=== PATIENT | male | born 1945 | race Caucasian/White ===

== ENCOUNTER 2023-04-18 16:36 | Inpatient (IN) | payer MEDICARE, OTHER ==
[~2023-04-18] VITALS: Ht 170.2 cm; Wt 68.0 kg
[2023-04-18 17:44] LABS: BASOPHILS # (AUTO) 0.1 K/uL (0.0-0.2); BASOPHILS % (AUTO) 0.6 % (0.0-2.0); EOSINOPHILS # (AUTO) 0.2 K/uL (0.0-0.7); EOSINOPHILS % (AUTO) 1.9 % (0.0-6.0); HEMATOCRIT 34 % (39-51); HEMOGLOBIN 11.5 g/dL (13.5-17.5); LYMPHOCYTES # (AUTO) 3.1 K/uL (0.8-4.8); LYMPHOCYTES % (AUTO) 34.6 % (20.0-44.0); MEAN CORPUSCULAR HEMOGLOBIN 30 PG (26.0-33.0); MEAN CORPUSCULAR HGB CONC 33 g/dl (31.0-36.0); MEAN CORPUSCULAR VOLUME 88 fL (80-96); MONOCYTES # (AUTO) 1.3 K/uL (0.1-1.30); NEUTROPHILS # (AUTO) 4.4 K/uL (1.8-8.9); NEUTROPHILS % (AUTO) 48.9 % (43.0-81.0); PLATELET COUNT (AUTO) 372 K/uL (150-450); RED BLOOD CELL COUNT(AUTO) 3.89 MIL/uL (4.5-6.0); RED CELL DISTRIBUTION WIDTH 16.1 % (11.5-15.0); WHITE BLOOD COUNT (AUTO) 9.1 K/uL (4.3-11.0)
[2023-04-18 17:58] LABS: INR 1.01 (0.91-1.10); PARTIAL THROMBOPLASTIN TIME 28.4 SEC (24.3-34.3); PROTHROMBIN TIME 10.6 SECS (9.2-11.1)
[2023-04-18 19:17] LABS: CALCIUM, SERUM 9.3 mg/dL (8.5-10.1); CARBON DIOXIDE 22 mmol/L (21-32); CHLORIDE 96 mmol/L (98-107); CREATININE 1.7 mg/dL (0.6-1.3); GLUCOSE 112 mg/dL (74-106); POTASSIUM 4.5 mmol/L (3.5-5.1); SODIUM SERUM 131 mmol/L (136-145); UREA NITROGEN, BLOOD 20 mg/dL (7-18)
[2023-04-18 19:28] LABS: ALANINE AMINOTRANSFERASE 22 U/L (12-78); ALBUMIN 2.8 g/dL (3.4-5.0); ALKALINE PHOSPHATASE 112 U/L (46-116); ASPARTATE AMINOTRANSFERASE 22 U/L (15-37); BILIRUBIN,DIRECT 0.3 mg/dL (0.0-0.2); BILIRUBIN,TOTAL 0.9 mg/dL (0.2-1.0); NT-PRO BNP 10500 pg/mL (0-125); TOTAL PROTEIN, SERUM 8.2 g/dL (6.4-8.2)
[2023-04-18] MEDS ORDERED: ZOLPIDEM TARTRATE 5 MG TABLET PO PRN (22:00)
[2023-04-18] MEDS ORDERED: FUROSEMIDE 40 MG/4 ML VIAL IV ONE (22:00)
[2023-04-18] MEDS ORDERED: MAGNESIUM HYDROXIDE 30 ML UDC PO PRN (22:00)
[2023-04-18] MEDS ORDERED: ACETAMINOPHEN 325 MG TABLET PO PRN (22:00)
[2023-04-18] MEDS ORDERED: Z GUARD REMEDY 4 OZ OINT TP PRN (22:00)
[2023-04-18] MEDS ORDERED: ONDANSETRON HCL/PF 4 MG/2 ML VIAL IVP PRN (22:00)
[2023-04-18 22:15] VITALS: BP 120/79; TEMP 97.9; O2SAT 94
[2023-04-18 23:00] VITALS: BP 120/79; TEMP 97.9; O2SAT 94
[2023-04-18] MEDS ORDERED: CEFTRIAXONE 1GM BAG (ER ONLY) 50 ML IV ONE (23:33)
[2023-04-18] MEDS: CEFTRIAXONE 1 G in IV D5W 50 ML IV SCH (23:49)
[2023-04-19] VITALS (7 sets, daily range): BP systolic 93–122; BP diastolic 52–63; TEMP 97.7–98.3; O2SAT 92–95
[2023-04-19] MEDS ORDERED: LEVALBUTEROL HCL NEB 1.25 MG/0.5 ML VIAL.NEB NEB PRN (01:00)
[2023-04-19] MEDS ORDERED: AZITHROMYCIN 500 MG VIAL ONE (01:03)
[2023-04-19] MEDS: AZITHROMYCIN 500 MG in IV D5W 250 ML IV SCH ×2 (01:56→21:51)
[2023-04-19 03:23] LABS: BASOPHILS # (AUTO) 0.2 K/uL (0.0-0.2); BASOPHILS % (AUTO) 2.7 % (0.0-2.0); EOSINOPHILS # (AUTO) 0.1 K/uL (0.0-0.7); EOSINOPHILS % (AUTO) 1.7 % (0.0-6.0); HEMATOCRIT 33 % (39-51); HEMOGLOBIN 11.2 g/dL (13.5-17.5); LYMPHOCYTES # (AUTO) 1.6 K/uL (0.8-4.8); LYMPHOCYTES % (AUTO) 20.6 % (20.0-44.0); MEAN CORPUSCULAR HEMOGLOBIN 29 PG (26.0-33.0); MEAN CORPUSCULAR HGB CONC 34 g/dl (31.0-36.0); MEAN CORPUSCULAR VOLUME 87 fL (80-96); MONOCYTES # (AUTO) 0.7 K/uL (0.1-1.30); MONOCYTES % (AUTO) 9.3 % (2.0-12.0); NEUTROPHILS # (AUTO) 5.2 K/uL (1.8-8.9); NEUTROPHILS % (AUTO) 65.7 % (43.0-81.0); PLATELET COUNT (AUTO) 357 K/uL (150-450); RED CELL DISTRIBUTION WIDTH 15.6 % (11.5-15.0); WHITE BLOOD COUNT (AUTO) 7.9 K/uL (4.3-11.0)
[2023-04-19] MEDS ORDERED: HEPARIN INFUSION/D5W 500 ML IV ONE (03:34)
[2023-04-19] MEDS ORDERED: HEPARIN SODIUM, PORCINE 5000 UNITS/1 ML VIAL IV ONE ×3 (04:00→19:00)
[2023-04-19 04:16] LABS: CALCIUM, SERUM 9.3 mg/dL (8.5-10.1); CARBON DIOXIDE 20 mmol/L (21-32); CHLORIDE 98 mmol/L (98-107); CREATININE 1.7 mg/dL (0.6-1.3); GLUCOSE 158 mg/dL (74-106); PHOSPHORUS 3.9 mg/dL (2.5-4.9); POTASSIUM 4.8 mmol/L (3.5-5.1); SODIUM SERUM 133 mmol/L (136-145); UREA NITROGEN, BLOOD 20 mg/dL (7-18)
[2023-04-19 04:18] LABS: CHOLESTEROL 178 mg/dL (<200); HDL CHOLESTEROL 41 mg/dL (40-60); LDL 107 mg/dL (0-99); TRIGLYCERIDES 152 mg/dL (30-150)
[2023-04-19] MEDS: HEPARIN INFUSION/D5W 500 ML IV PRN ×2 (04:24→22:00)
[2023-04-19 04:28] LABS: EOSINOPHILS % (MANUAL) 1 % (0-4); LYMPHOCYTES % (MANUAL) 32 % (16-48); MONOCYTES % (MANUAL) 7 % (0-11.0); NEUTROPHILS % (MANUAL) 60 (42-76); PLATELET ESTIMATE ADEQUATE
[2023-04-19] MEDS ORDERED: HEPARIN SODIUM, PORCINE 5000 UNITS/1 ML VIAL SQ SCH (09:00)
[2023-04-19] MEDS ORDERED: DUTA0.5C37 PO (09:18)
[2023-04-19] MEDS ORDERED: NITR0.4T48 PO (09:18)
[2023-04-19] MEDS ORDERED: SPIR50TA PO (09:18)
[2023-04-19] MEDS ORDERED: PANT40TA49 PO (09:18)
[2023-04-19] MEDS ORDERED: IVAB5TAB PO (09:18)
[2023-04-19] MEDS ORDERED: LOSA25TA27 PO (09:18)
[2023-04-19] MEDS ORDERED: ATOR40TA PO (09:18)
[2023-04-19] MEDS ORDERED: RANO10005 PO (09:18)
[2023-04-19] MEDS ORDERED: TAMS-12 PO (09:18)
[2023-04-19] MEDS ORDERED: ALBU18HF2 INH (09:18)
[2023-04-19] MEDS ORDERED: SITA1TAB2 PO (09:18)
[2023-04-19] MEDS ORDERED: ASPI-1420 PO (09:18)
[2023-04-19] MEDS ORDERED: FUROSEMIDE 20 MG/2 ML VIAL IV SCH (09:30)
[2023-04-19] MEDS ORDERED: SACU1TAB PO (10:06)
[2023-04-19] MEDS ORDERED: METO25CA PO (10:06)
[2023-04-19] MEDS ORDERED: CLOP75TA15 PO (10:06)
[2023-04-19] MEDS ORDERED: INSU100V7 SQ (10:07)
[2023-04-19 10:16] LABS: ABG OXYGEN SATURATION 93.1 % (92.0-98.5); ABG PCO2 32.6 mmHg (35.0-45.0); ABG PH 7.497 (7.350-7.450); ABG TOTAL HEMOGLOBIN 12.6 G/dL (13.5-18.0); AaDO2 96.2 mmHg; COHb 0.7 % (0.5-1.5); MetHb 0.1 % (0.0-1.5); O2Hb 92.4 % (94.0-97.0); SITE, ABG Left Radial; VENT MODE, BG 2L NC
[2023-04-19] MEDS: ASPIRIN 81 MG TAB.CHEW PO SCH (10:16)
[2023-04-19] MEDS: FUROSEMIDE 40 MG/4 ML VIAL IV SCH ×3 (10:21→17:06)
[2023-04-19 10:51] LABS: INR 1.02 (0.91-1.10); PARTIAL THROMBOPLASTIN TIME 44.1 SEC (24.3-34.3); PROTHROMBIN TIME 10.7 SECS (9.2-11.1)
[2023-04-19] MEDS: CEFTRIAXONE 1 G in IV D5W 50 ML IV SCH (22:48)
[2023-04-20] VITALS (10 sets, daily range): BP systolic 85–108; BP diastolic 46–67; TEMP 97.7–98.5; O2SAT 92–98
[2023-04-20 06:13] LABS: BASOPHILS # (AUTO) 0.1 K/uL (0.0-0.2); BASOPHILS % (AUTO) 1.5 % (0.0-2.0); EOSINOPHILS # (AUTO) 0.4 K/uL (0.0-0.7); EOSINOPHILS % (AUTO) 4.2 % (0.0-6.0); HEMATOCRIT 36 % (39-51); LYMPHOCYTES # (AUTO) 2.6 K/uL (0.8-4.8); LYMPHOCYTES % (AUTO) 28.2 % (20.0-44.0); MEAN CORPUSCULAR HEMOGLOBIN 30 PG (26.0-33.0); MEAN CORPUSCULAR HGB CONC 34 g/dl (31.0-36.0); MEAN CORPUSCULAR VOLUME 88 fL (80-96); MONOCYTES # (AUTO) 0.9 K/uL (0.1-1.30); MONOCYTES % (AUTO) 10.1 % (2.0-12.0); NEUTROPHILS # (AUTO) 5.2 K/uL (1.8-8.9); PLATELET COUNT (AUTO) 372 K/uL (150-450); RED BLOOD CELL COUNT(AUTO) 4.06 MIL/uL (4.5-6.0); WHITE BLOOD COUNT (AUTO) 9.3 K/uL (4.3-11.0)
[2023-04-20 06:32] LABS: ALANINE AMINOTRANSFERASE 18 U/L (12-78); ALBUMIN 2.3 g/dL (3.4-5.0); ALKALINE PHOSPHATASE 110 U/L (46-116); ASPARTATE AMINOTRANSFERASE 22 U/L (15-37); BILIRUBIN,TOTAL 0.7 mg/dL (0.2-1.0); CALCIUM, SERUM 9.1 mg/dL (8.5-10.1); CARBON DIOXIDE 24 mmol/L (21-32); CHLORIDE 96 mmol/L (98-107); CREATININE 1.5 mg/dL (0.6-1.3); GLUCOSE 122 mg/dL (74-106); MAGNESIUM 1.7 mg/dL (1.8-2.4); PHOSPHORUS 4.2 mg/dL (2.5-4.9); POTASSIUM 3.5 mmol/L (3.5-5.1); SODIUM SERUM 132 mmol/L (136-145); TOTAL PROTEIN, SERUM 7.6 g/dL (6.4-8.2); UREA NITROGEN, BLOOD 14 mg/dL (7-18)
[2023-04-20] MEDS: ASPIRIN 81 MG TAB.CHEW PO SCH (08:57)
[2023-04-20] MEDS: FUROSEMIDE 100 MG/10 ML VIAL IV SCH ×3 (09:00→17:00)
[2023-04-20] MEDS ORDERED: LOSARTAN POTASSIUM 25 MG TABLET PO SCH (09:00)
[2023-04-20] MEDS: SPIRONOLACTONE 25 MG TABLET PO SCH (10:00)
[2023-04-20] MEDS: POTASSIUM CHLORIDE 20 MEQ TAB.PRT.SR PO SCH ×4 (10:00→11:00)
[2023-04-20] MEDS: CLOPIDOGREL BISULFATE 75 MG TABLET PO SCH (10:11)
[2023-04-20] MEDS: Magnesium 1GM/D5W 100ML PREMIX 100 ML IV SCH ×2 (10:12→10:46)
[2023-04-20] MEDS: ENOXAPARIN SODIUM 40 MG/0.4 ML DISP.SYRIN SQ SCH (10:20)
[2023-04-20] MEDS: RANOLAZINE 500 MG TAB.ER.12H PO SCH ×2 (10:21→16:18)
[2023-04-20] MEDS: METOPROLOL SUCCINATE 25 MG TAB.SR.24H PO SCH (11:00)
[2023-04-20] MEDS: SACUBITRIL/VALSARTAN 1 EACH TABLET PO SCH ×2 (11:00→17:00)
[2023-04-20] MEDS: ALBUTEROL FS 2.5 MG/3 ML VIAL.NEB NEB SCH ×2 (14:03→19:47)
[2023-04-20] MEDS: AZITHROMYCIN 500 MG in IV D5W 250 ML IV SCH (21:25)
[2023-04-20] MEDS: ATORVASTATIN 40 MG TABLET PO SCH (22:34)
[2023-04-20] MEDS: MAG HYDROX/AL HYDROX/SIMETH 30 ML UDC PO PRN (22:34)
[2023-04-20] MEDS: CEFTRIAXONE 1 G in IV D5W 50 ML IV SCH (23:17)
[2023-04-21] VITALS (35 sets, daily range): BP systolic 74–115; BP diastolic 46–84; TEMP 97.9–98.8; O2SAT 92–99
[2023-04-21] MEDS ORDERED: IV NS 0.9% 500 ML BAG IV ONE (01:00)
[2023-04-21] MEDS: ALBUTEROL FS 2.5 MG/3 ML VIAL.NEB NEB SCH ×4 (01:32→19:21)
[2023-04-21 06:45] LABS: BASOPHILS # (AUTO) 0.1 K/uL (0.0-0.2); BASOPHILS % (AUTO) 0.7 % (0.0-2.0); EOSINOPHILS # (AUTO) 0.3 K/uL (0.0-0.7); EOSINOPHILS % (AUTO) 2.9 % (0.0-6.0); HEMATOCRIT 33 % (39-51); HEMOGLOBIN 11.3 g/dL (13.5-17.5); LYMPHOCYTES # (AUTO) 2.3 K/uL (0.8-4.8); LYMPHOCYTES % (AUTO) 23.2 % (20.0-44.0); MEAN CORPUSCULAR HEMOGLOBIN 30 PG (26.0-33.0); MEAN CORPUSCULAR HGB CONC 34 g/dl (31.0-36.0); MEAN CORPUSCULAR VOLUME 87 fL (80-96); MONOCYTES # (AUTO) 1.1 K/uL (0.1-1.30); NEUTROPHILS # (AUTO) 6.2 K/uL (1.8-8.9); NEUTROPHILS % (AUTO) 62.2 % (43.0-81.0); PLATELET COUNT (AUTO) 359 K/uL (150-450); RED BLOOD CELL COUNT(AUTO) 3.83 MIL/uL (4.5-6.0); WHITE BLOOD COUNT (AUTO) 9.9 K/uL (4.3-11.0)
[2023-04-21 06:59] LABS: ALANINE AMINOTRANSFERASE 22 U/L (12-78); ALBUMIN 2.3 g/dL (3.4-5.0); ALKALINE PHOSPHATASE 135 U/L (46-116); ASPARTATE AMINOTRANSFERASE 25 U/L (15-37); BILIRUBIN,TOTAL 0.6 mg/dL (0.2-1.0); CHLORIDE 98 mmol/L (98-107); CREATININE 1.6 mg/dL (0.6-1.3); GLUCOSE 116 mg/dL (74-106); PHOSPHORUS 3.6 mg/dL (2.5-4.9); POTASSIUM 4.2 mmol/L (3.5-5.1); SODIUM SERUM 132 mmol/L (136-145); TOTAL PROTEIN, SERUM 7.4 g/dL (6.4-8.2); UREA NITROGEN, BLOOD 13 mg/dL (7-18)
[2023-04-21 07:18] LABS: CARBON DIOXIDE 24 mmol/L (21-32); MAGNESIUM 1.9 mg/dL (1.8-2.4)
[2023-04-21] MEDS ORDERED: DoBUTamine 500 MG/250 ML PIGGYBACK IV ONE (08:30)
[2023-04-21] MEDS: ASPIRIN EC 81 MG TABLET.DR PO SCH (08:32)
[2023-04-21] MEDS: CLOPIDOGREL BISULFATE 75 MG TABLET PO SCH (08:32)
[2023-04-21] MEDS: PANTOPRAZOLE 40 MG TABLET.DR PO SCH (08:32)
[2023-04-21] MEDS: ENOXAPARIN SODIUM 40 MG/0.4 ML DISP.SYRIN SQ SCH (08:33)
[2023-04-21] MEDS: SPIRONOLACTONE 25 MG TABLET PO SCH (08:40)
[2023-04-21] MEDS: SACUBITRIL/VALSARTAN 1 EACH TABLET PO SCH ×2 (08:41→16:13)
[2023-04-21] MEDS: METOPROLOL SUCCINATE 25 MG TAB.SR.24H PO SCH (08:41)
[2023-04-21] MEDS: RANOLAZINE 500 MG TAB.ER.12H PO SCH ×2 (08:42→16:37)
[2023-04-21] MEDS: DOBUTamine 500 MG in IV D5W 210 ML IV PRN (09:48)
[2023-04-21] MEDS: PHENYLEPHRINE 50 MG in IV NS 0.9% 245 ML IV PRN (15:35)
[2023-04-21] MEDS: ENSURE ENLIVE 237 ML LIQUID (VANILLA) PO SCH ×2 (15:36→16:37)
[2023-04-21] MEDS: AZITHROMYCIN 500 MG in IV D5W 250 ML IV SCH (20:00)
[2023-04-21] MEDS: CEFTRIAXONE 1 G in IV D5W 50 ML IV SCH (21:00)
[2023-04-21] MEDS: ATORVASTATIN 40 MG TABLET PO SCH (21:04)
[2023-04-21] MEDS: MAG HYDROX/AL HYDROX/SIMETH 30 ML UDC PO PRN (21:16)
[2023-04-22] VITALS (42 sets, daily range): BP systolic 42–110; BP diastolic 26–82; TEMP 97.6–98.3; O2SAT 86–100
[2023-04-22] MEDS: ALBUTEROL FS 2.5 MG/3 ML VIAL.NEB NEB SCH ×4 (00:46→20:14)
[2023-04-22] MEDS: DOBUTamine 500 MG in IV D5W 210 ML IV PRN ×2 (03:02→22:00)
[2023-04-22] MEDS: PHENYLEPHRINE 50 MG in IV NS 0.9% 245 ML IV PRN ×3 (03:04→23:04)
[2023-04-22 04:55] LABS: BASOPHILS % (AUTO) 0.5 % (0.0-2.0); EOSINOPHILS # (AUTO) 0.2 K/uL (0.0-0.7); EOSINOPHILS % (AUTO) 2.6 % (0.0-6.0); HEMATOCRIT 33 % (39-51); HEMOGLOBIN 11.1 g/dL (13.5-17.5); LYMPHOCYTES # (AUTO) 2.5 K/uL (0.8-4.8); LYMPHOCYTES % (AUTO) 27.5 % (20.0-44.0); MEAN CORPUSCULAR HEMOGLOBIN 30 PG (26.0-33.0); MEAN CORPUSCULAR HGB CONC 34 g/dl (31.0-36.0); MEAN CORPUSCULAR VOLUME 88 fL (80-96); MONOCYTES % (AUTO) 11.2 % (2.0-12.0); NEUTROPHILS # (AUTO) 5.3 K/uL (1.8-8.9); NEUTROPHILS % (AUTO) 58.2 % (43.0-81.0); PLATELET COUNT (AUTO) 385 K/uL (150-450); RED BLOOD CELL COUNT(AUTO) 3.76 MIL/uL (4.5-6.0); RED CELL DISTRIBUTION WIDTH 16.1 % (11.5-15.0); WHITE BLOOD COUNT (AUTO) 9.2 K/uL (4.3-11.0)
[2023-04-22 05:17] LABS: ALANINE AMINOTRANSFERASE 15 U/L (12-78); ALBUMIN 2.4 g/dL (3.4-5.0); ALKALINE PHOSPHATASE 140 U/L (46-116); ASPARTATE AMINOTRANSFERASE 20 U/L (15-37); BILIRUBIN,TOTAL 0.9 mg/dL (0.2-1.0); CALCIUM, SERUM 8.9 mg/dL (8.5-10.1); CARBON DIOXIDE 28 mmol/L (21-32); CHLORIDE 99 mmol/L (98-107); CREATININE 1.5 mg/dL (0.6-1.3); GLUCOSE 108 mg/dL (74-106); MAGNESIUM 1.9 mg/dL (1.8-2.4); PHOSPHORUS 3.4 mg/dL (2.5-4.9); POTASSIUM 4.3 mmol/L (3.5-5.1); SODIUM SERUM 133 mmol/L (136-145); TOTAL PROTEIN, SERUM 7.4 g/dL (6.4-8.2); UREA NITROGEN, BLOOD 12 mg/dL (7-18)
[2023-04-22] MEDS: ENSURE ENLIVE 237 ML LIQUID (VANILLA) PO SCH ×3 (08:00→17:00)
[2023-04-22] MEDS: METOPROLOL SUCCINATE 25 MG TAB.SR.24H PO SCH (08:19)
[2023-04-22] MEDS: SPIRONOLACTONE 25 MG TABLET PO SCH (08:56)
[2023-04-22] MEDS: SACUBITRIL/VALSARTAN 1 EACH TABLET PO SCH ×2 (09:00→17:00)
[2023-04-22] MEDS: RANOLAZINE 500 MG TAB.ER.12H PO SCH ×2 (09:04→18:52)
[2023-04-22] MEDS: ASPIRIN EC 81 MG TABLET.DR PO SCH (09:04)
[2023-04-22] MEDS: CLOPIDOGREL BISULFATE 75 MG TABLET PO SCH (09:04)
[2023-04-22] MEDS: PANTOPRAZOLE 40 MG TABLET.DR PO SCH (09:04)
[2023-04-22] MEDS: ENOXAPARIN SODIUM 40 MG/0.4 ML DISP.SYRIN SQ SCH (09:06)
[2023-04-22 17:44] LABS: CREATININE, URINE 155.2 MG/DL (30.0-125.0)
[2023-04-22 18:54] LABS: APPEARANCE,URINE CLEAR (CLEAR); BILIRUBIN,URINE NEGATIVE (NEGATIVE); BLOOD, URINE TRACE-INTA Ery/uL (NEGATIVE); COLOR,URINE YELLOW (YELLOW); KETONES,URINE NEGATIVE (NEGATIVE); LEUKOCYTE ESTERASE ,URINE TRACE (NEGATIVE); NITRITE, URINE NEGATIVE (NEGATIVE); PH,URINE 5.5 (5.0-8.0); PROTEIN,URINE 1+ mg/dl (NEGATIVE); UGLUCOSE NEGATIVE (NEGATIVE); UROBILINOGEN,URINE 0.2 EU/dL (0.2)
[2023-04-22 18:57] LABS: ADD URINE CULTURE YES; BACTERIA,URINE 1+ /HPF (None Seen); SQUAMOUS EPITHELIAL CELL,UR Few /HPF (None Seen); WBC,URINE TOO NUMEROUS TO COUN /HPF (0-3)
[2023-04-22 18:59] LABS: EOSINOPHIL,URINE Rare
[2023-04-22] MEDS: AZITHROMYCIN 500 MG in IV D5W 250 ML IV SCH (21:00)
[2023-04-22] MEDS: ATORVASTATIN 40 MG TABLET PO SCH (21:48)
[2023-04-22] MEDS: MAG HYDROX/AL HYDROX/SIMETH 30 ML UDC PO PRN (21:49)
[2023-04-22] MEDS: CEFTRIAXONE 1 G in IV D5W 50 ML IV SCH (22:00)
[2023-04-22] MEDS ORDERED: NOREPINEPHRINE 4 MG/4 ML AMPUL IV ONE (22:23)
[2023-04-22] MEDS ORDERED: NOREPINEPHRINE 32 MG in IV NS 0.9% 218 ML IV PRN (22:30)
[2023-04-22 23:01] LABS: BASOPHILS % (AUTO) 0.3 % (0.0-2.0); EOSINOPHILS # (AUTO) 0.3 K/uL (0.0-0.7); HEMATOCRIT 34 % (39-51); LYMPHOCYTES # (AUTO) 6.2 K/uL (0.8-4.8); LYMPHOCYTES % (AUTO) 46.6 % (20.0-44.0); MEAN CORPUSCULAR HEMOGLOBIN 29 PG (26.0-33.0); MEAN CORPUSCULAR HGB CONC 32 g/dl (31.0-36.0); MEAN CORPUSCULAR VOLUME 90 fL (80-96); MONOCYTES # (AUTO) 1.2 K/uL (0.1-1.30); MONOCYTES % (AUTO) 8.8 % (2.0-12.0); NEUTROPHILS # (AUTO) 5.6 K/uL (1.8-8.9); NEUTROPHILS % (AUTO) 42.3 % (43.0-81.0); PLATELET COUNT (AUTO) 349 K/uL (150-450); RED BLOOD CELL COUNT(AUTO) 3.81 MIL/uL (4.5-6.0); RED CELL DISTRIBUTION WIDTH 16.5 % (11.5-15.0); WHITE BLOOD COUNT (AUTO) 13.4 K/uL (4.3-11.0)
[2023-04-22 23:11] LABS: ABG BASE EXCESS -8.2 mmol/L; ABG OXYGEN SATURATION 99.4 % (92.0-98.5); ABG PCO2 38.5 mmHg (35.0-45.0); ABG PH 7.284 (7.350-7.450); ABG PO2 256.8 mmHg (75.0-100.0); ABG TOTAL HEMOGLOBIN 12.6 G/dL (13.5-18.0); AaDO2 273.2 mmHg; COHb 0.1 % (0.5-1.5); MetHb 0.1 % (0.0-1.5); O2Hb 99.2 % (94.0-97.0); SITE, ABG Left Radial
[2023-04-22 23:15] LABS: INR 1.06 (0.91-1.10); PARTIAL THROMBOPLASTIN TIME 29.6 SEC (24.3-34.3); PROTHROMBIN TIME 11.1 SECS (9.2-11.1)
[2023-04-22 23:24] LABS: CALCIUM, SERUM 8.4 mg/dL (8.5-10.1); CARBON DIOXIDE 23 mmol/L (21-32); CHLORIDE 98 mmol/L (98-107); CREATININE 1.9 mg/dL (0.6-1.3); GLUCOSE 232 mg/dL (74-106); POTASSIUM 4.6 mmol/L (3.5-5.1); SODIUM SERUM 132 mmol/L (136-145); UREA NITROGEN, BLOOD 15 mg/dL (7-18)
[2023-04-22 23:30] LABS: ALANINE AMINOTRANSFERASE 16 U/L (12-78); ALBUMIN 2.2 g/dL (3.4-5.0); ALKALINE PHOSPHATASE 142 U/L (46-116); ASPARTATE AMINOTRANSFERASE 22 U/L (15-37); BILIRUBIN,TOTAL 0.7 mg/dL (0.2-1.0); TOTAL PROTEIN, SERUM 7.3 g/dL (6.4-8.2)
[2023-04-22] MEDS ORDERED: ASPIRIN 81 MG TAB.CHEW PO SCH (23:30)
[2023-04-22 23:53] LABS: BILIRUBIN,DIRECT 0.5 mg/dL (0.0-0.2)
[2023-04-23] VITALS (47 sets, daily range): BP systolic 79–121; BP diastolic 44–91; TEMP 97.5–98.2; O2SAT 92–100
[2023-04-23] MEDS: ALBUTEROL FS 2.5 MG/3 ML VIAL.NEB NEB SCH ×4 (01:30→19:48)
[2023-04-23] MEDS: PHENYLEPHRINE 50 MG in IV NS 0.9% 245 ML IV PRN ×2 (03:00→06:30)
[2023-04-23] MEDS ORDERED: IV NS 0.9% 500 ML IV ONE (03:30)
[2023-04-23 04:48] LABS: BASOPHILS % (AUTO) 0.2 % (0.0-2.0); EOSINOPHILS % (AUTO) 0.2 % (0.0-6.0); HEMATOCRIT 34 % (39-51); HEMOGLOBIN 11.2 g/dL (13.5-17.5); LYMPHOCYTES % (AUTO) 16.5 % (20.0-44.0); MEAN CORPUSCULAR HEMOGLOBIN 29 PG (26.0-33.0); MEAN CORPUSCULAR HGB CONC 33 g/dl (31.0-36.0); MEAN CORPUSCULAR VOLUME 89 fL (80-96); MONOCYTES # (AUTO) 0.9 K/uL (0.1-1.30); MONOCYTES % (AUTO) 7.8 % (2.0-12.0); NEUTROPHILS # (AUTO) 9.1 K/uL (1.8-8.9); NEUTROPHILS % (AUTO) 75.3 % (43.0-81.0); PLATELET COUNT (AUTO) 363 K/uL (150-450); RED BLOOD CELL COUNT(AUTO) 3.85 MIL/uL (4.5-6.0); RED CELL DISTRIBUTION WIDTH 16.4 % (11.5-15.0); WHITE BLOOD COUNT (AUTO) 12.1 K/uL (4.3-11.0)
[2023-04-23 05:12] LABS: ALANINE AMINOTRANSFERASE 33 U/L (12-78); ALBUMIN 2.3 g/dL (3.4-5.0); ALKALINE PHOSPHATASE 198 U/L (46-116); ASPARTATE AMINOTRANSFERASE 49 U/L (15-37); BILIRUBIN,TOTAL 0.8 mg/dL (0.2-1.0); CALCIUM, SERUM 8.6 mg/dL (8.5-10.1); CARBON DIOXIDE 25 mmol/L (21-32); CHLORIDE 99 mmol/L (98-107); CREATININE 1.9 mg/dL (0.6-1.3); GLUCOSE 100 mg/dL (74-106); MAGNESIUM 2.1 mg/dL (1.8-2.4); PHOSPHORUS 3.6 mg/dL (2.5-4.9); POTASSIUM 4.5 mmol/L (3.5-5.1); SODIUM SERUM 133 mmol/L (136-145); TOTAL PROTEIN, SERUM 7.1 g/dL (6.4-8.2); UREA NITROGEN, BLOOD 17 mg/dL (7-18)
[2023-04-23 05:18] LABS: IRON, SERUM 35 ug/dl (50-175); TOTAL IRON BINDING CAPACITY 247 ug/dl (250-450)
[2023-04-23 05:27] LABS: CREATINE KINASE, TOTAL 32 U/L (39-308); FERRITIN 162 ng/mL (8-388); THYROID STIMULATING HORMONE 1.357 uIU/mL (0.358-3.74)
[2023-04-23] MEDS: ENSURE ENLIVE 237 ML LIQUID (VANILLA) PO SCH ×3 (07:53→16:53)
[2023-04-23] MEDS: CLOPIDOGREL BISULFATE 75 MG TABLET PO SCH (08:49)
[2023-04-23] MEDS: ASPIRIN EC 81 MG TABLET.DR PO SCH (08:49)
[2023-04-23] MEDS: PANTOPRAZOLE 40 MG TABLET.DR PO SCH (08:49)
[2023-04-23] MEDS: ENOXAPARIN SODIUM 40 MG/0.4 ML DISP.SYRIN SQ SCH (08:50)
[2023-04-23] MEDS: HYDROCORTISONE SOD SUCCINATE 100 MG/2 ML VIAL IV SCH ×3 (08:55→21:35)
[2023-04-23] MEDS ORDERED: PHENYLEPHRINE 100 MG in IV NS 0.9% 240 ML IV PRN (09:30)
[2023-04-23] MEDS: FERROUS SULFATE (325 MG) 325 MG/TAB TABLET PO SCH (16:55)
[2023-04-23] MEDS: PHENYLEPHRINE 100 MG in IV NS 0.9% 240 ML IV PRN ×2 (18:34→19:02)
[2023-04-23] MEDS: ATORVASTATIN 40 MG TABLET PO SCH (21:35)
[2023-04-23] MEDS ORDERED: NOREPINEPHRINE 8 MG in IV NS 0.9% 242 ML IV PRN ×4 (22:00)
[2023-04-24] VITALS (50 sets, daily range): BP systolic 77–136; BP diastolic 53–91; TEMP 97.7–98.3; O2SAT 89–100
[2023-04-24] MEDS: ALBUTEROL FS 2.5 MG/3 ML VIAL.NEB NEB SCH ×4 (01:54→19:54)
[2023-04-24 04:47] LABS: BASOPHILS % (AUTO) 0.1 % (0.0-2.0); HEMATOCRIT 33 % (39-51); LYMPHOCYTES # (AUTO) 1.7 K/uL (0.8-4.8); LYMPHOCYTES % (AUTO) 15.7 % (20.0-44.0); MEAN CORPUSCULAR HEMOGLOBIN 29 PG (26.0-33.0); MEAN CORPUSCULAR HGB CONC 33 g/dl (31.0-36.0); MEAN CORPUSCULAR VOLUME 89 fL (80-96); MONOCYTES # (AUTO) 0.4 K/uL (0.1-1.30); MONOCYTES % (AUTO) 4.2 % (2.0-12.0); NEUTROPHILS # (AUTO) 8.5 K/uL (1.8-8.9); PLATELET COUNT (AUTO) 418 K/uL (150-450); RED BLOOD CELL COUNT(AUTO) 3.76 MIL/uL (4.5-6.0); RED CELL DISTRIBUTION WIDTH 16.1 % (11.5-15.0); WHITE BLOOD COUNT (AUTO) 10.6 K/uL (4.3-11.0)
[2023-04-24 05:02] LABS: ALANINE AMINOTRANSFERASE 26 U/L (12-78); ALBUMIN 2.6 g/dL (3.4-5.0); ALKALINE PHOSPHATASE 173 U/L (46-116); ASPARTATE AMINOTRANSFERASE 24 U/L (15-37); BILIRUBIN,TOTAL 0.5 mg/dL (0.2-1.0); CALCIUM, SERUM 8.9 mg/dL (8.5-10.1); CARBON DIOXIDE 25 mmol/L (21-32); CHLORIDE 100 mmol/L (98-107); CREATININE 1.9 mg/dL (0.6-1.3); GLUCOSE 168 mg/dL (74-106); PHOSPHORUS 3.2 mg/dL (2.5-4.9); POTASSIUM 4.3 mmol/L (3.5-5.1); SODIUM SERUM 134 mmol/L (136-145); TOTAL PROTEIN, SERUM 7.5 g/dL (6.4-8.2); UREA NITROGEN, BLOOD 24 mg/dL (7-18)
[2023-04-24] MEDS: HYDROCORTISONE SOD SUCCINATE 100 MG/2 ML VIAL IV SCH ×3 (05:11→21:09)
[2023-04-24] MEDS: ASPIRIN EC 81 MG TABLET.DR PO SCH (08:30)
[2023-04-24] MEDS: FERROUS SULFATE (325 MG) 325 MG/TAB TABLET PO SCH ×2 (08:30→17:52)
[2023-04-24] MEDS: PANTOPRAZOLE 40 MG TABLET.DR PO SCH (08:30)
[2023-04-24] MEDS: CLOPIDOGREL BISULFATE 75 MG TABLET PO SCH (08:30)
[2023-04-24] MEDS: ENOXAPARIN SODIUM 40 MG/0.4 ML DISP.SYRIN SQ SCH (08:32)
[2023-04-24] MEDS: ENSURE ENLIVE 237 ML LIQUID (VANILLA) PO SCH ×3 (08:33→17:52)
[2023-04-24] MEDS: NITROGLYCERIN 0.4 MG/TAB BOTTLE SL PRN ×4 (14:13→23:35)
[2023-04-24] MEDS: PHENYLEPHRINE 100 MG in IV NS 0.9% 240 ML IV PRN (14:34)
[2023-04-24] MEDS: ATORVASTATIN 40 MG TABLET PO SCH (21:10)
[2023-04-25] VITALS (40 sets, daily range): BP systolic 93–139; BP diastolic 66–118; TEMP 97.7–98.3; O2SAT 91–100
[2023-04-25 01:06] LABS: FOLIC ACID 9.7 ng/mL (>3.0)
[2023-04-25] MEDS: ALBUTEROL FS 2.5 MG/3 ML VIAL.NEB NEB SCH ×2 (01:57→07:01)
[2023-04-25] MEDS: HYDROCORTISONE SOD SUCCINATE 100 MG/2 ML VIAL IV SCH ×3 (05:27→21:24)
[2023-04-25 07:07] LABS: PTH, INTACT 51 pg/mL (15-65)
[2023-04-25] MEDS: NITROGLYCERIN 0.4 MG/TAB BOTTLE SL PRN ×7 (07:26→20:52)
[2023-04-25 08:07] LABS: *SPE A/G RATIO 0.7 (0.7-1.7); *SPE ALBUMIN 2.6 g/dL (2.9-4.4); *SPE ALPHA-1-GLOBULIN 0.3 g/dL (0.0-0.4); *SPE ALPHA-2-GLOBULIN 0.9 g/dL (0.4-1.0); *SPE BETA GLOBULIN 1.1 g/dL (0.7-1.3); *SPE M-SPIKE Not Observed g/dL (Not Observed); *SPE PROTEIN TOTAL 6.6 g/dL (6.0-8.5); *SPEGAMMA GLOBULIN 1.6 g/dL (0.4-1.8)
[2023-04-25] MEDS ORDERED: BUMETANIDE INJ 0.25 MG/ML VIAL IV ONE (08:30)
[2023-04-25] MEDS: PANTOPRAZOLE 40 MG TABLET.DR PO SCH (08:31)
[2023-04-25] MEDS: FERROUS SULFATE (325 MG) 325 MG/TAB TABLET PO SCH ×2 (08:31→17:18)
[2023-04-25] MEDS: CLOPIDOGREL BISULFATE 75 MG TABLET PO SCH (08:31)
[2023-04-25] MEDS: ASPIRIN EC 81 MG TABLET.DR PO SCH (08:31)
[2023-04-25] MEDS: ENOXAPARIN SODIUM 40 MG/0.4 ML DISP.SYRIN SQ SCH (08:32)
[2023-04-25] MEDS: ENSURE ENLIVE 237 ML LIQUID (VANILLA) PO SCH ×3 (08:37→17:18)
[2023-04-25] MEDS ORDERED: MORPHINE SULFATE INJ 2 MG/ML DISP.SYRIN IV PRN (09:00)
[2023-04-25] MEDS: MORPHINE SULFATE INJ 4 MG/ML DISP.SYRIN IV PRN (11:06)
[2023-04-25 12:07] LABS: CORTISOL AM 23.6 ug/dL (6.2-19.4)
[2023-04-25 13:07] LABS: FREE KAPPA LT CHAINS SERUM 102.2 mg/L (3.3-19.4); FREE LAMBDA LT CHAIN SERUM 43.1 mg/L (5.7-26.3); KAPPA/LAMBDA RATIO SERUM 2.37 (0.26-1.65)
[2023-04-25] MEDS ORDERED: MILRINONE LACTATE 20 MG in IV D5W 100 ML IV PRN (16:30)
[2023-04-25] MEDS: DOBUTamine 500 MG in IV D5W 210 ML IV PRN (17:59)
[2023-04-25] MEDS: ATORVASTATIN 40 MG TABLET PO SCH (21:24)
[2023-04-26] VITALS (25 sets, daily range): BP systolic 99–119; BP diastolic 73–89; TEMP 97.6–98; O2SAT 96–98
[2023-04-26] MEDS: HYDROCORTISONE SOD SUCCINATE 100 MG/2 ML VIAL IV SCH (04:34)
[2023-04-26] MEDS: ENSURE ENLIVE 237 ML LIQUID (VANILLA) PO SCH ×3 (07:48→17:01)
[2023-04-26] MEDS: PANTOPRAZOLE 40 MG TABLET.DR PO SCH (07:50)
[2023-04-26 08:34] LABS: ALANINE AMINOTRANSFERASE 36 U/L (12-78); ALBUMIN 2.9 g/dL (3.4-5.0); ALKALINE PHOSPHATASE 148 U/L (46-116); ASPARTATE AMINOTRANSFERASE 30 U/L (15-37); BILIRUBIN,TOTAL 0.5 mg/dL (0.2-1.0); CALCIUM, SERUM 9.1 mg/dL (8.5-10.1); CARBON DIOXIDE 29 mmol/L (21-32); CHLORIDE 99 mmol/L (98-107); CREATININE 1.8 mg/dL (0.6-1.3); GLUCOSE 172 mg/dL (74-106); PHOSPHORUS 2.8 mg/dL (2.5-4.9); SODIUM SERUM 134 mmol/L (136-145); TOTAL PROTEIN, SERUM 7.7 g/dL (6.4-8.2); UREA NITROGEN, BLOOD 35 mg/dL (7-18)
[2023-04-26 08:44] LABS: BASOPHILS % (AUTO) 0.1 % (0.0-2.0); HEMATOCRIT 32 % (39-51); HEMOGLOBIN 10.4 g/dL (13.5-17.5); LYMPHOCYTES # (AUTO) 1.2 K/uL (0.8-4.8); LYMPHOCYTES % (AUTO) 12.5 % (20.0-44.0); MEAN CORPUSCULAR HEMOGLOBIN 29 PG (26.0-33.0); MEAN CORPUSCULAR HGB CONC 33 g/dl (31.0-36.0); MEAN CORPUSCULAR VOLUME 90 fL (80-96); MONOCYTES # (AUTO) 0.7 K/uL (0.1-1.30); MONOCYTES % (AUTO) 7.6 % (2.0-12.0); NEUTROPHILS # (AUTO) 7.5 K/uL (1.8-8.9); NEUTROPHILS % (AUTO) 79.8 % (43.0-81.0); PLATELET COUNT (AUTO) 322 K/uL (150-450); RED BLOOD CELL COUNT(AUTO) 3.55 MIL/uL (4.5-6.0); RED CELL DISTRIBUTION WIDTH 16.4 % (11.5-15.0); WHITE BLOOD COUNT (AUTO) 9.3 K/uL (4.3-11.0)
[2023-04-26] MEDS: CLOPIDOGREL BISULFATE 75 MG TABLET PO SCH (09:02)
[2023-04-26] MEDS: FERROUS SULFATE (325 MG) 325 MG/TAB TABLET PO SCH ×2 (09:02→17:01)
[2023-04-26] MEDS: ASPIRIN EC 81 MG TABLET.DR PO SCH (09:02)
[2023-04-26] MEDS: ENOXAPARIN SODIUM 40 MG/0.4 ML DISP.SYRIN SQ SCH (09:03)
[2023-04-26] MEDS: MORPHINE SULFATE INJ 4 MG/ML DISP.SYRIN IV PRN (09:27)
[2023-04-26] MEDS: DOBUTamine 500 MG in IV D5W 210 ML IV PRN (14:14)
[2023-04-26] MEDS ORDERED: BUMETANIDE INJ 4 MG in IV NS 0.9% 24 ML IV ONE (18:30)
[2023-04-26] MEDS: ATORVASTATIN 40 MG TABLET PO SCH (21:35)
[2023-04-27] VITALS (27 sets, daily range): BP systolic 93–113; BP diastolic 66–87; TEMP 97.5–98.2; O2SAT 95–100
[2023-04-27 04:20] LABS: BASOPHILS # (AUTO) 0.1 K/uL (0.0-0.2); BASOPHILS % (AUTO) 0.7 % (0.0-2.0); EOSINOPHILS % (AUTO) 0.1 % (0.0-6.0); HEMATOCRIT 33 % (39-51); HEMOGLOBIN 10.5 g/dL (13.5-17.5); LYMPHOCYTES # (AUTO) 2.9 K/uL (0.8-4.8); LYMPHOCYTES % (AUTO) 23.3 % (20.0-44.0); MEAN CORPUSCULAR HEMOGLOBIN 29 PG (26.0-33.0); MEAN CORPUSCULAR HGB CONC 32 g/dl (31.0-36.0); MEAN CORPUSCULAR VOLUME 89 fL (80-96); MONOCYTES # (AUTO) 1.4 K/uL (0.1-1.30); MONOCYTES % (AUTO) 11.7 % (2.0-12.0); NEUTROPHILS # (AUTO) 7.9 K/uL (1.8-8.9); NEUTROPHILS % (AUTO) 64.2 % (43.0-81.0); PLATELET COUNT (AUTO) 323 K/uL (150-450); RED BLOOD CELL COUNT(AUTO) 3.67 MIL/uL (4.5-6.0); RED CELL DISTRIBUTION WIDTH 16.5 % (11.5-15.0); WHITE BLOOD COUNT (AUTO) 12.2 K/uL (4.3-11.0)
[2023-04-27 04:33] LABS: ALANINE AMINOTRANSFERASE 40 U/L (12-78); ALKALINE PHOSPHATASE 157 U/L (46-116); ASPARTATE AMINOTRANSFERASE 30 U/L (15-37); BILIRUBIN,TOTAL 0.6 mg/dL (0.2-1.0); CALCIUM, SERUM 9.3 mg/dL (8.5-10.1); CARBON DIOXIDE 31 mmol/L (21-32); CHLORIDE 96 mmol/L (98-107); CREATININE 1.8 mg/dL (0.6-1.3); GLUCOSE 152 mg/dL (74-106); PHOSPHORUS 2.8 mg/dL (2.5-4.9); POTASSIUM 4.2 mmol/L (3.5-5.1); SODIUM SERUM 134 mmol/L (136-145); TOTAL PROTEIN, SERUM 7.7 g/dL (6.4-8.2); UREA NITROGEN, BLOOD 47 mg/dL (7-18)
[2023-04-27] MEDS ORDERED: BUMETANIDE INJ 8 MG in IV D5W 48 ML IV ONE (06:30)
[2023-04-27] MEDS: ENSURE ENLIVE 237 ML LIQUID (VANILLA) PO SCH ×3 (07:57→16:45)
[2023-04-27] MEDS: PANTOPRAZOLE 40 MG TABLET.DR PO SCH (07:58)
[2023-04-27] MEDS: DOBUTamine 500 MG in IV D5W 210 ML IV PRN (08:17)
[2023-04-27] MEDS: HYDROCORTISONE SOD SUCCINATE 100 MG/2 ML VIAL IV SCH (09:59)
[2023-04-27] MEDS: ASPIRIN EC 81 MG TABLET.DR PO SCH (10:01)
[2023-04-27] MEDS: CLOPIDOGREL BISULFATE 75 MG TABLET PO SCH (10:01)
[2023-04-27] MEDS: FERROUS SULFATE (325 MG) 325 MG/TAB TABLET PO SCH ×2 (10:01→16:46)
[2023-04-27] MEDS: ENOXAPARIN SODIUM 40 MG/0.4 ML DISP.SYRIN SQ SCH (10:03)
[2023-04-27] MEDS ORDERED: BUMETANIDE INJ 6 MG in IV NS 0.9% 36 ML IV ONE (15:00)
[2023-04-27] MEDS: PROSOURCE / PROSTAT (PYXIS) 30 ML UDC PO SCH (16:45)
[2023-04-27 21:06] LABS: *MET NORMETANEPHRINE, PL 853.3 pg/mL (0.0-285.2); *METANEPHRINES, PL 69.3 pg/mL (0.0-88.0)
[2023-04-27] MEDS: ATORVASTATIN 40 MG TABLET PO SCH (21:53)
[2023-04-28] VITALS (24 sets, daily range): BP systolic 84–105; BP diastolic 58–90; TEMP 97.3–98.2; O2SAT 90–99
[2023-04-28] MEDS: DOBUTamine 500 MG in IV D5W 210 ML IV PRN (03:57)
[2023-04-28 04:48] LABS: BASOPHILS # (AUTO) 0.1 K/uL (0.0-0.2); BASOPHILS % (AUTO) 0.7 % (0.0-2.0); EOSINOPHILS % (AUTO) 0.3 % (0.0-6.0); HEMATOCRIT 35 % (39-51); HEMOGLOBIN 11.7 g/dL (13.5-17.5); LYMPHOCYTES # (AUTO) 2.8 K/uL (0.8-4.8); LYMPHOCYTES % (AUTO) 25.4 % (20.0-44.0); MEAN CORPUSCULAR HEMOGLOBIN 29 PG (26.0-33.0); MEAN CORPUSCULAR HGB CONC 33 g/dl (31.0-36.0); MEAN CORPUSCULAR VOLUME 88 fL (80-96); MONOCYTES # (AUTO) 1.2 K/uL (0.1-1.30); MONOCYTES % (AUTO) 10.9 % (2.0-12.0); NEUTROPHILS % (AUTO) 62.7 % (43.0-81.0); PLATELET COUNT (AUTO) 340 K/uL (150-450); RED BLOOD CELL COUNT(AUTO) 4.02 MIL/uL (4.5-6.0); RED CELL DISTRIBUTION WIDTH 16.4 % (11.5-15.0); WHITE BLOOD COUNT (AUTO) 11.1 K/uL (4.3-11.0)
[2023-04-28 05:00] LABS: CALCIUM, SERUM 9.3 mg/dL (8.5-10.1); CARBON DIOXIDE 35 mmol/L (21-32); CHLORIDE 93 mmol/L (98-107); CREATININE 1.8 mg/dL (0.6-1.3); GLUCOSE 118 mg/dL (74-106); POTASSIUM 3.2 mmol/L (3.5-5.1); SODIUM SERUM 137 mmol/L (136-145); UREA NITROGEN, BLOOD 46 mg/dL (7-18)
[2023-04-28] MEDS ORDERED: POTASSIUM CHLORIDE 20 MEQ TAB.PRT.SR PO ONE (07:30)
[2023-04-28] MEDS ORDERED: BUMETANIDE INJ 8 MG in IV D5W 48 ML IV ONE (08:00)
[2023-04-28] MEDS: ASPIRIN EC 81 MG TABLET.DR PO SCH (08:53)
[2023-04-28] MEDS: CLOPIDOGREL BISULFATE 75 MG TABLET PO SCH (08:53)
[2023-04-28] MEDS: FERROUS SULFATE (325 MG) 325 MG/TAB TABLET PO SCH ×2 (08:53→17:20)
[2023-04-28] MEDS: HYDROCORTISONE SOD SUCCINATE 100 MG/2 ML VIAL IV SCH (08:53)
[2023-04-28] MEDS: ENSURE ENLIVE 237 ML LIQUID (VANILLA) PO SCH ×3 (08:54→16:54)
[2023-04-28] MEDS: PANTOPRAZOLE 40 MG TABLET.DR PO SCH (08:56)
[2023-04-28] MEDS: PROSOURCE / PROSTAT (PYXIS) 30 ML UDC PO SCH ×4 (08:57→17:00)
[2023-04-28] MEDS: ENOXAPARIN SODIUM 40 MG/0.4 ML DISP.SYRIN SQ SCH (09:30)
[2023-04-28] MEDS: CLOTRIMAZOLE 1% 15 GM TUBE TP SCH ×2 (09:50→17:08)
[2023-04-28] MEDS: METOPROLOL TARTRATE 25 MG TABLET PO SCH ×2 (15:57→22:07)
[2023-04-28] MEDS: ATORVASTATIN 40 MG TABLET PO SCH (22:06)
[2023-04-29] VITALS (24 sets, daily range): BP systolic 87–125; BP diastolic 60–98; TEMP 97–98.3; O2SAT 92–100
[2023-04-29] MEDS: PROSOURCE / PROSTAT (PYXIS) 30 ML UDC PO SCH ×3 (07:59→17:08)
[2023-04-29] MEDS: ENSURE ENLIVE 237 ML LIQUID (VANILLA) PO SCH ×3 (07:59→17:08)
[2023-04-29] MEDS: FERROUS SULFATE (325 MG) 325 MG/TAB TABLET PO SCH ×2 (08:21→16:15)
[2023-04-29] MEDS: ASPIRIN EC 81 MG TABLET.DR PO SCH (08:21)
[2023-04-29] MEDS: PANTOPRAZOLE 40 MG TABLET.DR PO SCH (08:21)
[2023-04-29] MEDS: HYDROCORTISONE SOD SUCCINATE 100 MG/2 ML VIAL IV SCH (08:21)
[2023-04-29] MEDS: CLOPIDOGREL BISULFATE 75 MG TABLET PO SCH (08:21)
[2023-04-29] MEDS: METOPROLOL TARTRATE 25 MG TABLET PO SCH ×2 (08:22→21:32)
[2023-04-29] MEDS: ENOXAPARIN SODIUM 40 MG/0.4 ML DISP.SYRIN SQ SCH (08:23)
[2023-04-29] MEDS: CLOTRIMAZOLE 1% 15 GM TUBE TP SCH ×2 (08:24→16:15)
[2023-04-29] MEDS: MORPHINE SULFATE INJ 4 MG/ML DISP.SYRIN IV PRN (10:28)
[2023-04-29] MEDS ORDERED: LIDOCAINE 1% INJ 50 ML MDV IJ ONE (11:00)
[2023-04-29] MEDS: MAG HYDROX/AL HYDROX/SIMETH 30 ML UDC PO PRN (17:40)
[2023-04-29] MEDS: ATORVASTATIN 40 MG TABLET PO SCH (21:31)
[2023-04-30] VITALS (12 sets, daily range): BP systolic 88–121; BP diastolic 60–87; TEMP 97.5–98.6; O2SAT 92–97
[2023-04-30 05:23] LABS: BASOPHILS # (AUTO) 0.1 K/uL (0.0-0.2); BASOPHILS % (AUTO) 0.5 % (0.0-2.0); EOSINOPHILS # (AUTO) 0.1 K/uL (0.0-0.7); EOSINOPHILS % (AUTO) 0.8 % (0.0-6.0); HEMATOCRIT 37 % (39-51); HEMOGLOBIN 12.2 g/dL (13.5-17.5); LYMPHOCYTES # (AUTO) 2.6 K/uL (0.8-4.8); LYMPHOCYTES % (AUTO) 19.1 % (20.0-44.0); MEAN CORPUSCULAR HEMOGLOBIN 29 PG (26.0-33.0); MEAN CORPUSCULAR HGB CONC 33 g/dl (31.0-36.0); MEAN CORPUSCULAR VOLUME 89 fL (80-96); MONOCYTES # (AUTO) 1.2 K/uL (0.1-1.30); MONOCYTES % (AUTO) 8.7 % (2.0-12.0); NEUTROPHILS # (AUTO) 9.9 K/uL (1.8-8.9); NEUTROPHILS % (AUTO) 70.9 % (43.0-81.0); PLATELET COUNT (AUTO) 328 K/uL (150-450); RED BLOOD CELL COUNT(AUTO) 4.17 MIL/uL (4.5-6.0); WHITE BLOOD COUNT (AUTO) 13.9 K/uL (4.3-11.0)
[2023-04-30 05:31] LABS: CALCIUM, SERUM 9.5 mg/dL (8.5-10.1); CARBON DIOXIDE 38 mmol/L (21-32); CHLORIDE 93 mmol/L (98-107); CREATININE 1.7 mg/dL (0.6-1.3); GLUCOSE 143 mg/dL (74-106); POTASSIUM 3.4 mmol/L (3.5-5.1); SODIUM SERUM 136 mmol/L (136-145); UREA NITROGEN, BLOOD 57 mg/dL (7-18)
[2023-04-30] MEDS: CLOTRIMAZOLE 1% 15 GM TUBE TP SCH ×2 (08:00→17:11)
[2023-04-30] MEDS: ENSURE ENLIVE 237 ML LIQUID (VANILLA) PO SCH ×3 (08:00→16:56)
[2023-04-30] MEDS: PROSOURCE / PROSTAT (PYXIS) 30 ML UDC PO SCH ×3 (08:00→17:09)
[2023-04-30] MEDS: ASPIRIN EC 81 MG TABLET.DR PO SCH (08:07)
[2023-04-30] MEDS: PANTOPRAZOLE 40 MG TABLET.DR PO SCH (08:07)
[2023-04-30] MEDS: METOPROLOL TARTRATE 25 MG TABLET PO SCH ×2 (08:07→21:00)
[2023-04-30] MEDS: HYDROCORTISONE SOD SUCCINATE 100 MG/2 ML VIAL IV SCH (08:07)
[2023-04-30] MEDS: CLOPIDOGREL BISULFATE 75 MG TABLET PO SCH (08:07)
[2023-04-30] MEDS: FERROUS SULFATE (325 MG) 325 MG/TAB TABLET PO SCH ×2 (08:07→17:19)
[2023-04-30] MEDS: ENOXAPARIN SODIUM 40 MG/0.4 ML DISP.SYRIN SQ SCH (08:11)
[2023-04-30] MEDS ORDERED: POTASSIUM CHLORIDE 20 MEQ TAB.PRT.SR PO SCH (10:30)
[2023-04-30] MEDS: ATORVASTATIN 40 MG TABLET PO SCH (21:31)
[2023-05-01] VITALS: BP 84/59; TEMP 97.3; O2SAT 96
[2023-05-01 04:00] VITALS: BP 100/64; TEMP 97.5; O2SAT 94
[2023-05-01 05:57] LABS: BASOPHILS % (AUTO) 0.2 % (0.0-2.0); EOSINOPHILS # (AUTO) 0.2 K/uL (0.0-0.7); EOSINOPHILS % (AUTO) 1.2 % (0.0-6.0); HEMATOCRIT 35 % (39-51); HEMOGLOBIN 11.5 g/dL (13.5-17.5); LYMPHOCYTES # (AUTO) 1.8 K/uL (0.8-4.8); LYMPHOCYTES % (AUTO) 13.6 % (20.0-44.0); MEAN CORPUSCULAR HEMOGLOBIN 29 PG (26.0-33.0); MEAN CORPUSCULAR HGB CONC 33 g/dl (31.0-36.0); MEAN CORPUSCULAR VOLUME 89 fL (80-96); MONOCYTES # (AUTO) 0.9 K/uL (0.1-1.30); MONOCYTES % (AUTO) 7.3 % (2.0-12.0); NEUTROPHILS # (AUTO) 10.1 K/uL (1.8-8.9); NEUTROPHILS % (AUTO) 77.7 % (43.0-81.0); PLATELET COUNT (AUTO) 255 K/uL (150-450); RED BLOOD CELL COUNT(AUTO) 3.95 MIL/uL (4.5-6.0); RED CELL DISTRIBUTION WIDTH 16.6 % (11.5-15.0)
[2023-05-01 06:36] LABS: CALCIUM, SERUM 9.8 mg/dL (8.5-10.1); CARBON DIOXIDE 35 mmol/L (21-32); CHLORIDE 92 mmol/L (98-107); CREATININE 1.7 mg/dL (0.6-1.3); GLUCOSE 179 mg/dL (74-106); MAGNESIUM 2.5 mg/dL (1.8-2.4); PHOSPHORUS 3.3 mg/dL (2.5-4.9); POTASSIUM 3.4 mmol/L (3.5-5.1); SODIUM SERUM 137 mmol/L (136-145); UREA NITROGEN, BLOOD 51 mg/dL (7-18)
[2023-05-01 08:00] VITALS: BP 84/59; TEMP 97.6; O2SAT 96
[2023-05-01] MEDS: ENSURE ENLIVE 237 ML LIQUID (VANILLA) PO SCH ×3 (08:00→16:57)
[2023-05-01] MEDS: PROSOURCE / PROSTAT (PYXIS) 30 ML UDC PO SCH ×3 (08:00→17:29)
[2023-05-01] MEDS: METOPROLOL TARTRATE 25 MG TABLET PO SCH ×2 (09:00→21:00)
[2023-05-01] MEDS ORDERED: FUROSEMIDE 40 MG TABLET PO SCH (09:00)
[2023-05-01] MEDS: ASPIRIN EC 81 MG TABLET.DR PO SCH (09:22)
[2023-05-01] MEDS: FERROUS SULFATE (325 MG) 325 MG/TAB TABLET PO SCH ×2 (09:22→17:29)
[2023-05-01] MEDS: CLOPIDOGREL BISULFATE 75 MG TABLET PO SCH (09:22)
[2023-05-01] MEDS: PANTOPRAZOLE 40 MG TABLET.DR PO SCH (09:23)
[2023-05-01] MEDS: HYDROCORTISONE SOD SUCCINATE 100 MG/2 ML VIAL IV SCH (09:25)
[2023-05-01] MEDS: CLOTRIMAZOLE 1% 15 GM TUBE TP SCH ×2 (09:26→17:27)
[2023-05-01] MEDS ORDERED: POTASSIUM CHLORIDE 10 MEQ TABLET.SA PO ONE (10:00)
[2023-05-01 12:00] VITALS: BP 92/63; TEMP 97.7; O2SAT 97
[2023-05-01 16:00] VITALS: BP 94/59; TEMP 97.8; O2SAT 98
[2023-05-01] MEDS: MIDODRINE HCL (5MG) 5 MG TABLET PO SCH (17:29)
[2023-05-01 20:00] VITALS: BP 91/62; TEMP 98; O2SAT 97
[2023-05-01] MEDS: ATORVASTATIN 40 MG TABLET PO SCH (21:10)
[2023-05-02] VITALS (7 sets, daily range): BP systolic 83–97; BP diastolic 47–65; TEMP 97.6–98.7; O2SAT 93–98
[2023-05-02 05:49] LABS: BASOPHILS % (AUTO) 0.3 % (0.0-2.0); EOSINOPHILS # (AUTO) 0.1 K/uL (0.0-0.7); EOSINOPHILS % (AUTO) 1.1 % (0.0-6.0); HEMATOCRIT 35 % (39-51); HEMOGLOBIN 11.6 g/dL (13.5-17.5); LYMPHOCYTES # (AUTO) 1.7 K/uL (0.8-4.8); LYMPHOCYTES % (AUTO) 13.6 % (20.0-44.0); MEAN CORPUSCULAR HEMOGLOBIN 29 PG (26.0-33.0); MEAN CORPUSCULAR HGB CONC 33 g/dl (31.0-36.0); MEAN CORPUSCULAR VOLUME 89 fL (80-96); MONOCYTES # (AUTO) 1.1 K/uL (0.1-1.30); MONOCYTES % (AUTO) 9.2 % (2.0-12.0); NEUTROPHILS # (AUTO) 9.4 K/uL (1.8-8.9); NEUTROPHILS % (AUTO) 75.8 % (43.0-81.0); PLATELET COUNT (AUTO) 258 K/uL (150-450); RED BLOOD CELL COUNT(AUTO) 3.94 MIL/uL (4.5-6.0); RED CELL DISTRIBUTION WIDTH 16.8 % (11.5-15.0); WHITE BLOOD COUNT (AUTO) 12.4 K/uL (4.3-11.0)
[2023-05-02 06:00] LABS: CALCIUM, SERUM 9.7 mg/dL (8.5-10.1); CARBON DIOXIDE 36 mmol/L (21-32); CHLORIDE 93 mmol/L (98-107); CREATININE 1.4 mg/dL (0.6-1.3); GLUCOSE 119 mg/dL (74-106); POTASSIUM 3.5 mmol/L (3.5-5.1); SODIUM SERUM 135 mmol/L (136-145); UREA NITROGEN, BLOOD 54 mg/dL (7-18)
[2023-05-02] MEDS: ENSURE ENLIVE 237 ML LIQUID (VANILLA) PO SCH ×3 (08:12→16:55)
[2023-05-02] MEDS: PROSOURCE / PROSTAT (PYXIS) 30 ML UDC PO SCH ×3 (08:13→16:55)
[2023-05-02] MEDS: HYDROCORTISONE SOD SUCCINATE 100 MG/2 ML VIAL IV SCH (08:22)
[2023-05-02] MEDS: PANTOPRAZOLE 40 MG TABLET.DR PO SCH (08:24)
[2023-05-02] MEDS: ASPIRIN EC 81 MG TABLET.DR PO SCH (08:24)
[2023-05-02] MEDS: CLOPIDOGREL BISULFATE 75 MG TABLET PO SCH (08:24)
[2023-05-02] MEDS: MIDODRINE HCL (5MG) 5 MG TABLET PO SCH ×3 (08:25→16:55)
[2023-05-02] MEDS: FERROUS SULFATE (325 MG) 325 MG/TAB TABLET PO SCH ×2 (08:25→16:55)
[2023-05-02] MEDS: METOPROLOL TARTRATE 25 MG TABLET PO SCH ×2 (09:00→21:00)
[2023-05-02] MEDS: CLOTRIMAZOLE 1% 15 GM TUBE TP SCH ×2 (09:08→16:53)
[2023-05-02] MEDS ORDERED: IV NS 0.9% 250 ML IV ONE (12:30)
[2023-05-02] MEDS: ATORVASTATIN 40 MG TABLET PO SCH (22:21)
[2023-05-03] VITALS: BP 88/58; TEMP 98.1; O2SAT 92
[2023-05-03 03:06] LABS: HEPATITIS B CORE AB, IgM Negative (Negative); HEPATITIS B CORE AB, TOTAL Negative (Negative); HEPATITIS B SURFACE AB Non Reactive (.)
[2023-05-03 04:00] VITALS: BP 102/66; TEMP 98.2; O2SAT 94
[2023-05-03 06:45] LABS: BASOPHILS # (AUTO) 0.1 K/uL (0.0-0.2); BASOPHILS % (AUTO) 0.4 % (0.0-2.0); EOSINOPHILS # (AUTO) 0.1 K/uL (0.0-0.7); EOSINOPHILS % (AUTO) 0.4 % (0.0-6.0); HEMATOCRIT 40 % (39-51); HEMOGLOBIN 12.7 g/dL (13.5-17.5); LYMPHOCYTES % (AUTO) 16.1 % (20.0-44.0); MEAN CORPUSCULAR HEMOGLOBIN 29 PG (26.0-33.0); MEAN CORPUSCULAR HGB CONC 32 g/dl (31.0-36.0); MEAN CORPUSCULAR VOLUME 90 fL (80-96); MONOCYTES # (AUTO) 1.2 K/uL (0.1-1.30); MONOCYTES % (AUTO) 9.7 % (2.0-12.0); NEUTROPHILS # (AUTO) 9.1 K/uL (1.8-8.9); NEUTROPHILS % (AUTO) 73.4 % (43.0-81.0); PLATELET COUNT (AUTO) 298 K/uL (150-450); RED BLOOD CELL COUNT(AUTO) 4.42 MIL/uL (4.5-6.0); RED CELL DISTRIBUTION WIDTH 16.7 % (11.5-15.0); WHITE BLOOD COUNT (AUTO) 12.4 K/uL (4.3-11.0)
[2023-05-03 07:08] LABS: CARBON DIOXIDE 37 mmol/L (21-32); CHLORIDE 92 mmol/L (98-107); CREATININE 1.4 mg/dL (0.6-1.3); GLUCOSE 150 mg/dL (74-106); MAGNESIUM 2.3 mg/dL (1.8-2.4); PHOSPHORUS 3.6 mg/dL (2.5-4.9); POTASSIUM 3.5 mmol/L (3.5-5.1); SODIUM SERUM 138 mmol/L (136-145); UREA NITROGEN, BLOOD 51 mg/dL (7-18)
[2023-05-03 08:00] VITALS: BP 96/65; TEMP 98.1; O2SAT 95
[2023-05-03] MEDS: PROSOURCE / PROSTAT (PYXIS) 30 ML UDC PO SCH ×2 (08:00→12:00)
[2023-05-03] MEDS: ENSURE ENLIVE 237 ML LIQUID (VANILLA) PO SCH ×3 (08:00→16:45)
[2023-05-03] MEDS ORDERED: predniSONE 10 MG TABLET PO SCH (09:00)
[2023-05-03] MEDS: METOPROLOL TARTRATE 25 MG TABLET PO SCH ×2 (09:00→21:00)
[2023-05-03] MEDS ORDERED: predniSONE 5 MG TABLET PO SCH (09:00)
[2023-05-03] MEDS: PANTOPRAZOLE 40 MG TABLET.DR PO SCH (09:20)
[2023-05-03] MEDS: CLOPIDOGREL BISULFATE 75 MG TABLET PO SCH (09:20)
[2023-05-03] MEDS: ASPIRIN EC 81 MG TABLET.DR PO SCH (09:20)
[2023-05-03] MEDS: FERROUS SULFATE (325 MG) 325 MG/TAB TABLET PO SCH ×2 (09:20→16:46)
[2023-05-03] MEDS: MIDODRINE HCL (5MG) 5 MG TABLET PO SCH ×3 (09:21→16:47)
[2023-05-03] MEDS: CLOTRIMAZOLE 1% 15 GM TUBE TP SCH ×2 (09:21→16:45)
[2023-05-03] MEDS: predniSONE 5 MG TABLET PO SCH (11:16)
[2023-05-03 12:00] VITALS: BP 123/73; TEMP 97.8; O2SAT 94
[2023-05-03] MEDS ORDERED: DIGOXIN INJ 0.5 MG/2 ML AMPUL IV ONE (13:00)
[2023-05-03] MEDS: FUROSEMIDE 20 MG TABLET PO SCH (13:35)
[2023-05-03 16:00] VITALS: BP 112/72; TEMP 98.1; O2SAT 94
[2023-05-03 20:00] VITALS: BP 102/60; TEMP 98.7; O2SAT 93
[2023-05-03] MEDS: ATORVASTATIN 40 MG TABLET PO SCH (21:36)
[2023-05-04] VITALS (7 sets, daily range): BP systolic 90–96; BP diastolic 56–62; TEMP 97.5–98.3; O2SAT 93–99
[2023-05-04 06:09] LABS: BASOPHILS # (AUTO) 0.1 K/uL (0.0-0.2); BASOPHILS % (AUTO) 0.4 % (0.0-2.0); EOSINOPHILS # (AUTO) 0.1 K/uL (0.0-0.7); EOSINOPHILS % (AUTO) 0.8 % (0.0-6.0); HEMATOCRIT 35 % (39-51); HEMOGLOBIN 11.6 g/dL (13.5-17.5); LYMPHOCYTES # (AUTO) 2.5 K/uL (0.8-4.8); LYMPHOCYTES % (AUTO) 21.2 % (20.0-44.0); MEAN CORPUSCULAR HEMOGLOBIN 29 PG (26.0-33.0); MEAN CORPUSCULAR HGB CONC 33 g/dl (31.0-36.0); MEAN CORPUSCULAR VOLUME 88 fL (80-96); MONOCYTES % (AUTO) 8.8 % (2.0-12.0); NEUTROPHILS % (AUTO) 68.8 % (43.0-81.0); PLATELET COUNT (AUTO) 268 K/uL (150-450); RED BLOOD CELL COUNT(AUTO) 4.01 MIL/uL (4.5-6.0); RED CELL DISTRIBUTION WIDTH 17.5 % (11.5-15.0); WHITE BLOOD COUNT (AUTO) 11.6 K/uL (4.3-11.0)
[2023-05-04 07:20] LABS: CALCIUM, SERUM 9.4 mg/dL (8.5-10.1); CARBON DIOXIDE 36 mmol/L (21-32); CHLORIDE 94 mmol/L (98-107); CREATININE 1.5 mg/dL (0.6-1.3); GLUCOSE 119 mg/dL (74-106); PHOSPHORUS 3.1 mg/dL (2.5-4.9); POTASSIUM 3.5 mmol/L (3.5-5.1); SODIUM SERUM 137 mmol/L (136-145); UREA NITROGEN, BLOOD 53 mg/dL (7-18)
[2023-05-04] MEDS: BUMETANIDE INJ 3 MG in IV NS 0.9% 48 ML IV ONE ×2 (07:30→08:21)
[2023-05-04] MEDS: CLOPIDOGREL BISULFATE 75 MG TABLET PO SCH (08:20)
[2023-05-04] MEDS: FUROSEMIDE 20 MG TABLET PO SCH (08:22)
[2023-05-04] MEDS: PANTOPRAZOLE 40 MG TABLET.DR PO SCH (08:22)
[2023-05-04] MEDS: MIDODRINE HCL (5MG) 5 MG TABLET PO SCH ×3 (08:22→17:26)
[2023-05-04] MEDS: ASPIRIN EC 81 MG TABLET.DR PO SCH (08:22)
[2023-05-04] MEDS: FERROUS SULFATE (325 MG) 325 MG/TAB TABLET PO SCH ×2 (08:22→17:26)
[2023-05-04] MEDS: METOPROLOL TARTRATE 25 MG TABLET PO SCH ×2 (08:23→21:00)
[2023-05-04] MEDS: predniSONE 5 MG TABLET PO SCH (08:25)
[2023-05-04] MEDS: ENSURE ENLIVE 237 ML LIQUID (VANILLA) PO SCH ×3 (08:26→17:26)
[2023-05-04] MEDS: CLOTRIMAZOLE 1% 15 GM TUBE TP SCH ×2 (08:26→17:06)
[2023-05-04] MEDS ORDERED: predniSONE 5 MG TABLET PO SCH (09:00)
[2023-05-04] MEDS ORDERED: BUMETANIDE INJ 3 MG in IV NS 0.9% 48 ML IV ONE (10:00)
[2023-05-04] MEDS: DIGOXIN 0.25 MG TABLET PO SCH (12:25)
[2023-05-04] MEDS: MORPHINE SULFATE INJ 4 MG/ML DISP.SYRIN IV PRN (12:57)
[2023-05-04] MEDS ORDERED: predniSONE 10 MG TABLET PO ONE (14:30)
[2023-05-04] MEDS ORDERED: HYDROCODONE/APAP 5/325MG TABLET PO PRN (14:30)
[2023-05-04] MEDS ORDERED: predniSONE 5 MG TABLET PO ONE (15:00)
[2023-05-04] MEDS: GABAPENTIN 100 MG CAPSULE PO SCH ×2 (15:30→17:26)
[2023-05-04] MEDS: VALACYCLOVIR HCL 500 MG TABLET PO SCH ×2 (15:31→21:00)
[2023-05-04] MEDS ORDERED: predniSONE 20 MG TABLET PO ONE (16:00)
[2023-05-04] MEDS: ATORVASTATIN 40 MG TABLET PO SCH (21:09)
[2023-05-05] VITALS: BP 93/53; TEMP 98.5; O2SAT 95
[2023-05-05 04:00] VITALS: BP 93/58; TEMP 98; O2SAT 92
[2023-05-05] MEDS: VALACYCLOVIR HCL 500 MG TABLET PO SCH ×2 (05:00→13:29)
[2023-05-05 08:00] VITALS: BP 111/66; TEMP 98.8; O2SAT 95
[2023-05-05] MEDS: ENSURE ENLIVE 237 ML LIQUID (VANILLA) PO SCH ×2 (08:19→12:05)
[2023-05-05] MEDS: ASPIRIN EC 81 MG TABLET.DR PO SCH (08:20)
[2023-05-05] MEDS: FERROUS SULFATE (325 MG) 325 MG/TAB TABLET PO SCH (08:20)
[2023-05-05] MEDS: PANTOPRAZOLE 40 MG TABLET.DR PO SCH (08:20)
[2023-05-05] MEDS: CLOPIDOGREL BISULFATE 75 MG TABLET PO SCH (08:20)
[2023-05-05] MEDS: GABAPENTIN 100 MG CAPSULE PO SCH ×2 (08:20→12:51)
[2023-05-05] MEDS: METOPROLOL TARTRATE 25 MG TABLET PO SCH (08:22)
[2023-05-05] MEDS: MIDODRINE HCL (5MG) 5 MG TABLET PO SCH ×2 (08:22→12:51)
[2023-05-05] MEDS: CLOTRIMAZOLE 1% 15 GM TUBE TP SCH (08:22)
[2023-05-05] MEDS ORDERED: predniSONE 20 MG TABLET PO SCH (09:00)
[2023-05-05] MEDS ORDERED: FUROSEMIDE 20 MG TABLET PO SCH (09:00)
[2023-05-05] MEDS ORDERED: GABA100C PO (10:21)
[2023-05-05] MEDS ORDERED: FURO20TA4 PO (10:21)
[2023-05-05] MEDS ORDERED: MIDO5TAB4 PO (10:21)
[2023-05-05] MEDS ORDERED: METO25TA20 PO (10:21)
[2023-05-05 12:00] VITALS: BP 118/80; TEMP 97.9; O2SAT 98
[2023-05-05 12:51] VITALS: BP 97/70
[2023-05-05] MEDS: DIGOXIN 0.25 MG TABLET PO SCH (12:51)
== END 2023-05-05 15:50 | disposition home health service (06) | DRG 280 ==
LOC: ER 16:44 → TELE 21:22 → ICU 04-21 09:27 → TELE1 04-30 10:15
PROVIDERS: ADMIT Nurse Practitioner Acute Care; ATTEND Internal Medicine
PROC: 05H533Z Insertion of Infusion Device into Right Subclavian Vein, Percutaneous Approach (ICD-10-PCS; principal; 2023-04-21)
PROC: B546ZZA Ultrasonography of Right Subclavian Vein, Guidance (ICD-10-PCS; 2023-04-21)
DX: I13.0 Hypertensive heart and chronic kidney disease with heart failure and stage 1 through stage 4 chronic kidney disease, or unspecified chronic kidney disease (principal); I21.A1 Myocardial infarction type 2; I50.33 Acute on chronic diastolic (congestive) heart failure; J96.01 Acute respiratory failure with hypoxia; N17.0 Acute kidney failure with tubular necrosis; R57.0 Cardiogenic shock; E44.0 Moderate protein-calorie malnutrition; E87.1 Hypo-osmolality and hyponatremia; J90 Pleural effusion, not elsewhere classified; N18.9 Chronic kidney disease, unspecified; D50.9 Iron deficiency anemia, unspecified; E78.5 Hyperlipidemia, unspecified; Z87.891 Personal history of nicotine dependence; Z87.442 Personal history of urinary calculi; Z86.19 Personal history of other infectious and parasitic diseases; Z95.0 Presence of cardiac pacemaker; J44.9 Chronic obstructive pulmonary disease, unspecified; E88.09 Other disorders of plasma-protein metabolism, not elsewhere classified; E27.9 Disorder of adrenal gland, unspecified; D63.8 Anemia in other chronic diseases classified elsewhere; N47.1 Phimosis; E83.52 Hypercalcemia; I25.2 Old myocardial infarction; Z99.81 Dependence on supplemental oxygen; Z68.23 Body mass index [BMI] 23.0-23.9, adult; I25.5 Ischemic cardiomyopathy; R33.9 Retention of urine, unspecified
CPT/HCPCS: 36410; 36415; 36600; 70450-TC; 71045-TC; 71250-TC; 76770-TC; 78582; 80048-TC; 80053-TC; 80061-TC; 80076-TC; 80162-TC; 81001; 82248-TC; 82378; 82384; 82533; 82550-TC; 82570-TC; 82607-TC; 82728-TC; 82784; 82803-TC; 82962-TC; 83540-TC; 83605-TC; 83615-TC; 83690-TC; 83735-TC; 83835; 83880; 83970; 84100-TC; 84155; 84165; 84300-TC; 84443-TC; 84484-TC; 85025-TC; 85378-TC; 85610-TC; 85730-TC; 86334; 86704; 86705; 86706; 86803; 87086-TC; 87340; 92526; 92611-TC; 93307-TC; 93970-TC; 94799-TC; 97112-TC; 97116-TC; 97530-TC; A4223; A9540; A9567; G0378; J0456; J0696; J1160; J1250; J1644; J1650; J1720; J1940; J2270; J2370; J2405; J3475; J3490; J7030; J7040; J7050; J7060; J7512